=== PATIENT | female | born 1960 | race African-American/Black ===

== ENCOUNTER 2021-08-12 09:34 | Outpatient (CLI) | payer BC ==
[~2021-08-12 09:34] MED LIST: Magnevist 469MG/ML 20 ML VIAL ONE
== END 2021-08-12 09:35 | disposition home or self-care (01) ==
LOC: CSHMRI 09:34
PROVIDERS: ATTEND Anesthesiology Pain Medicine
DX: M54.16 Radiculopathy, lumbar region (principal); Z98.890 Other specified postprocedural states; M47.816 Spondylosis without myelopathy or radiculopathy, lumbar region
CPT/HCPCS: 72158; A9579

== ENCOUNTER 2021-08-18 15:24 | Outpatient (CLI) | payer BC | END 2021-08-18 15:25 | disposition home or self-care (01) | LOC: CSHMRI 15:24 | PROVIDERS: ATTEND Neurological Surgery | DX: I82.403 Acute embolism and thrombosis of unspecified deep veins of lower extremity, bilateral (principal); M25.562 Pain in left knee; S83.282A Other tear of lateral meniscus, current injury, left knee, initial encounter | CPT/HCPCS: 93970 ==

== ENCOUNTER 2021-11-12 10:12 | Outpatient (CLI) | payer BC | END 2021-11-12 10:13 | disposition home or self-care (01) | LOC: CSHRAD 10:12 | PROVIDERS: ATTEND Orthopaedic Surgery | DX: M54.50 Low back pain, unspecified (principal); M47.816 Spondylosis without myelopathy or radiculopathy, lumbar region; Z98.890 Other specified postprocedural states | CPT/HCPCS: 72100; 72120 ==

== ENCOUNTER 2021-12-10 07:26 | Outpatient (CLI) | payer BC | END 2021-12-10 07:27 | disposition home or self-care (01) | LOC: CSHULT 07:26 | PROVIDERS: ATTEND Internal Medicine Gastroenterology | DX: K21.9 Gastro-esophageal reflux disease without esophagitis (principal); K30 Functional dyspepsia; R10.13 Epigastric pain | CPT/HCPCS: 76700 ==

== ENCOUNTER 2023-01-19 10:33 | Outpatient (CLI) | payer BC ==
[2023-01-19] MEDS ORDERED: Iopamidol 300 61% 100 ML VIAL FS ONE (13:14)
== END 2023-01-19 10:34 | disposition home or self-care (01) ==
LOC: CSHCT 10:33
PROVIDERS: ATTEND Psychiatry & Neurology Neurology
DX: M48.061 Spinal stenosis, lumbar region without neurogenic claudication (principal); M51.36 Other intervertebral disc degeneration, lumbar region
CPT/HCPCS: 72132; Q9967

== ENCOUNTER 2023-04-19 12:28 | Observation (INO) | payer BC, OTHER, SELFPAY ==
[~2023-04-19 12:28] MED LIST changes: +Iopamidol 370 76% 100 ML VIAL ONE; -Magnevist 469MG/ML 20 ML VIAL ONE
[2023-04-19 13:24] LABS: ALT (SGPT) 12 U/L (8-55); AST (SGOT) 10 U/L (5-34); Albumin 4.1 g/dL (3.5-5.0); Alkaline Phosphatase 136 U/L (40-110); Anion Gap 15 mmol/L (10-20); BUN (Urea Nitrogen) 10 mg/dL (9.8-20.1); Bilirubin, Total 0.8 mg/dL (0.2-1.2); Calc. Creatinine Clearance 0 mL/min (70-130); Calcium 9.2 mg/dL (7.8-10.44); Carbon Dioxide 25 mmol/L (22-29); Chloride 106 mmol/L (98-107); Estimated GFR 81; Glucose 78 mg/dL (70-105); Lipase 15 U/L (8-78); Protein, Total 7.1 g/dL (6.0-8.3); Sodium 142 mmol/L (136-145)
[2023-04-19 13:25] LABS: Troponin I Less than 0.010 ng/mL (< 0.028)
[2023-04-19 13:29] LABS: #Eosinphils 0.1 10x3/uL (0.0-0.5); #Monocytes 0.6 10x3/uL (0.0-1.1); %Basophils 0.4 % (0.0-2.0); %Eosinophils 1.1 % (0.0-6.0); %Lymphocytes 32.5 % (18.0-47.0); %Monocytes 6.5 % (0.0-10.0); %Neutrophils 59.1 % (40.0-75.0); Hematocrit 36.8 % (34.9-44.5); Hemoglobin 12.5 g/dL (12.0-15.5); Mean Corpuscular Hemoglobin 25.2 pg (27.0-33.0); Mean Corpuscular Volume 74.2 fl (81.6-98.3); Mean Platelet Volume 11.5 fl (7.4-10.4); Platelet Count 276 10x3/uL (150-450); Red Blood Cell (RBC) Count 4.96 10x6/uL (3.90-5.03); White Blood Cell (WBC) Count 8.5 10x3/uL (3.5-10.5)
[2023-04-19] MEDS ORDERED: Morphine 4 MG/ML VIAL ONE (13:32)
[2023-04-19] MEDS ORDERED: Ondansetron PF 4 MG/2 ML Vial ONE (13:33)
[2023-04-19] MEDS ORDERED: HYDROmorphone 0.5 MG/0.5 ML SYRINGE ONE (13:55)
[2023-04-19 15:49] LABS: Troponin I Less than 0.010 ng/mL (< 0.028)
[2023-04-19] MEDS ORDERED: Ondansetron ODT 4 MG TAB PO PRN (17:59)
[2023-04-19 18:43] LABS: Troponin I Less than 0.010 ng/mL (< 0.028)
[2023-04-19] MEDS ORDERED: Metoprolol Tartrate 25 MG TAB PO SCH (21:30)
[2023-04-19 21:59] LABS: Troponin I Less than 0.010 ng/mL (< 0.028)
[2023-04-19] MEDS ORDERED: Metoprolol Tartrate 25 MG TAB ONE (21:59)
[2023-04-19] MEDS ORDERED: Morphine 2 MG/ML VIAL ONE (23:09)
[2023-04-19] MEDS ORDERED: Acetaminophen 325 MG TAB ONE (23:16)
[2023-04-19] MEDS: Acetaminophen 325 MG TAB PO PRN (23:19)
[2023-04-20 04:43] LABS: #Eosinphils 0.1 10x3/uL (0.0-0.5); #Monocytes 0.6 10x3/uL (0.0-1.1); %Basophils 0.4 % (0.0-2.0); %Eosinophils 1.6 % (0.0-6.0); %Lymphocytes 31.2 % (18.0-47.0); %Monocytes 6.8 % (0.0-10.0); %Neutrophils 59.6 % (40.0-75.0); Hematocrit 35.2 % (34.9-44.5); Hemoglobin 11.8 g/dL (12.0-15.5); Mean Corpuscular HGB CONC 33.5 g/dL (32.0-36.0); Mean Corpuscular Hemoglobin 24.7 pg (27.0-33.0); Mean Corpuscular Volume 73.8 fl (81.6-98.3); Mean Platelet Volume 11.5 fl (7.4-10.4); Platelet Count 272 10x3/uL (150-450); RBC Distribution Width 14.2 % (11.5-14.5); Red Blood Cell (RBC) Count 4.77 10x6/uL (3.90-5.03); White Blood Cell (WBC) Count 8.3 10x3/uL (3.5-10.5)
[2023-04-20 04:55] LABS: Anion Gap 10 mmol/L (10-20); BUN (Urea Nitrogen) 11 mg/dL (9.8-20.1); Calc. Creatinine Clearance 0 mL/min (70-130); Carbon Dioxide 30 mmol/L (22-29); Cardiac Risk 2.8 (Less than 4.5); Chloride 104 mmol/L (98-107); Cholesterol 178 mg/dl (< 200 Desired); Estimated GFR 78; Glucose 94 mg/dL (70-105); HDL Cholesterol 63 mg/dL (>60 Neg Risk); LDL Cholesterol, Calculated 102 mg/dL; Potassium 4.4 mmol/L (3.5-5.1); Sodium 140 mmol/L (136-145); Triglycerides 65 mg/dL (Less than 150)
[2023-04-20] MEDS ORDERED: Acetaminophen 325 MG TAB ONE ×2 (06:25→15:48)
[2023-04-20] MEDS ORDERED: cloNIDine 0.1 MG TAB ONE (06:37)
[2023-04-20] MEDS: Acetaminophen 325 MG TAB PO PRN ×3 (06:39→22:21)
[2023-04-20] MEDS ORDERED: cloNIDine 0.1 MG TAB PO SCH (08:00)
[2023-04-20] MEDS ORDERED: Aspirin Chewable 81 MG TAB ONE (08:04)
[2023-04-20] MEDS ORDERED: Losartan 25 MG TAB ONE (08:05)
[2023-04-20] MEDS: Aspirin Chewable 81 MG TAB PO SCH (08:14)
[2023-04-20] MEDS ORDERED: Losartan 25 MG TAB PO SCH ×2 (09:00→21:00)
[2023-04-20 10:44] LABS: Magnesium 2.1 mg/dL (1.6-2.6)
[2023-04-20] MEDS ORDERED: Isosorbide Mononitrate 30 MG ER.TAB PO SCH (13:00)
[2023-04-20] MEDS ORDERED: Spironolactone 25 MG TAB PO SCH (21:00)
[2023-04-20 22:53] VITALS: BMI 45.6
[2023-04-21] MEDS: Aspirin Chewable 81 MG TAB PO SCH (08:46)
[2023-04-21] MEDS ORDERED: Losartan 50 MG TAB PO SCH (09:00)
[2023-04-21] MEDS ORDERED: Ibuprofen 200 MG TAB PO SCH (09:00)
[2023-04-21] MEDS ORDERED: Isosorbide Mononitrate 30 MG ER.TAB PO SCH (09:00)
[2023-04-21 12:29] VITALS: BP 129/66; TEMP 98.5
[2023-04-21] MEDS ORDERED: Morphine 4 MG/ML VIAL SLOW IVP SCH (13:45)
== END 2023-04-21 15:20 | disposition home or self-care (01) ==
LOC: CSHERS 12:28 → CSHERHOLD 15:11 → CSHTELE 04-20 21:19
PROVIDERS: ADMIT Internal Medicine; ATTEND Internal Medicine
PROC: B246ZZZ Ultrasonography of Right and Left Heart (ICD-10-PCS; principal; 2023-04-19)
DX: I25.118 Atherosclerotic heart disease of native coronary artery with other forms of angina pectoris (principal); E78.2 Mixed hyperlipidemia; I11.0 Hypertensive heart disease with heart failure; I50.32 Chronic diastolic (congestive) heart failure; G47.30 Sleep apnea, unspecified; K58.9 Irritable bowel syndrome, unspecified; R10.84 Generalized abdominal pain; M54.9 Dorsalgia, unspecified; G89.29 Other chronic pain; Z88.8 Allergy status to other drugs, medicaments and biological substances; Z79.899 Other long term (current) drug therapy; Z87.891 Personal history of nicotine dependence; Z79.82 Long term (current) use of aspirin
CPT/HCPCS: 36415; 71045; 71275; 80048; 80053; 80061; 83690; 83735; 83880; 84484; 85025; 93005; 93306; 96374; 96375; 96376; G0378; J1170; J2270; J2272; J2405; Q9967

== ENCOUNTER 2024-12-23 08:03 | Observation (INO) | payer OTHER ==
[2024-12-23] MEDS ORDERED: Aspirin 325 MG TAB ONE (08:35)
[2024-12-23] MEDS ORDERED: Aspirin Chewable 81 MG TAB ONE ×2 (08:38→08:39)
[2024-12-23 08:41] LABS: #Basophils Less than 0.03 10x3/uL (0.0-0.2); #Eosinophils 0.15 10x3/uL (0.0-0.5); #Monocytes 0.65 10x3/uL (0.0-1.1); #Neutrophils 6.23 10x3/uL (1.5-8.4); %Basophils 0.2 % (0.0-2.0); %Eosinophils 1.4 % (0.0-6.0); %Lymphocytes 32.8 % (18.0-47.0); %Monocytes 6.1 % (0.0-10.0); %Neutrophils 58.9 % (40.0-75.0); Hematocrit 35.8 % (34.9-44.5); Hemoglobin 11.9 g/dL (12.0-15.5); Mean Corpuscular Hemoglobin 24.1 pg (27.0-33.0); Mean Corpuscular Volume 72.6 fL (81.6-98.3); Platelet Count 327 10x3/uL (150-450); Red Blood Cell (RBC) Count 4.93 10x6/uL (3.90-5.03); White Blood Cell (WBC) Count 10.58 10x3/uL (3.5-10.5)
[2024-12-23 09:00] LABS: Troponin I Less than 0.010 ng/mL (< 0.028)
[2024-12-23 09:04] LABS: AST (SGOT) 9 U/L (11-34); Albumin 3.4 g/dL (3.1-4.5); Alkaline Phosphatase 131 U/L (40-110); Anion Gap 12 mmol/L (10-20); BUN (Urea Nitrogen) 13 mg/dL (9.8-20.1); Bilirubin, Total 0.3 mg/dL (0.3-1.2); Calc. Creatinine Clearance 0 mL/min (70-130); Calcium 8.7 mg/dL (7.8-10.44); Carbon Dioxide 25 mmol/L (23-31); Chloride 110 mmol/L (98-107); Globulin 3.0 g/dL (2.4-3.5); Glucose 99 mg/dL (80-115); Magnesium 2.0 mg/dL (1.6-2.6); Potassium 3.8 mmol/L (3.5-5.1); Sodium 143 mmol/L (136-145)
[2024-12-23] MEDS ORDERED: Iopamidol 370 76% 100 ML VIAL ONE (10:11)
[2024-12-23 10:44] LABS: ALT (SGPT) 12 U/L (Less than 34)
[2024-12-23 11:36] LABS: Troponin I 0.011 ng/mL (< 0.028)
[2024-12-23 14:38] VITALS: BMI 46.5
[2024-12-23] MEDS ORDERED: Bisacodyl 10 MG SUPP PR PRN (15:32)
[2024-12-23] MEDS ORDERED: Calcium Carbonate 500 MG ChewTAB PO PRN (15:32)
[2024-12-23] MEDS ORDERED: Senokot S 8.6-50 MG TAB PO PRN (15:32)
[2024-12-23] MEDS ORDERED: Ondansetron PF 4 MG/2 ML Vial IVP PRN (15:32)
[2024-12-23] MEDS ORDERED: Melatonin 3 MG TAB PO PRN (15:32)
[2024-12-23] MEDS ORDERED: Albuterol 2.5 MG (3 mL) NEB NEB PRN (15:39)
[2024-12-23] MEDS ORDERED: Ibuprofen 200 MG TAB PO PRN (16:16)
[2024-12-23] MEDS: Acetaminophen 325 MG TAB PO PRN (16:40)
[2024-12-23 19:14] LABS: Influenza A by NAA Not Detected (NotDetected); Influenza B by NAA Not Detected (NotDetected); SARS-CoV-2 NAA Rapid Test Not Detected (NotDetected)
[2024-12-23] MEDS: Famotidine 20 MG TAB PO SCH ×2 (20:40→22:53)
[2024-12-23] MEDS ORDERED: Dicyclomine 10 MG CAP PO PRN (20:58)
[2024-12-24 05:33] LABS: #Basophils 0.03 10x3/uL (0.0-0.2); #Eosinophils 0.14 10x3/uL (0.0-0.5); #Monocytes 0.74 10x3/uL (0.0-1.1); #Neutrophils 6.82 10x3/uL (1.5-8.4); %Basophils 0.3 % (0.0-2.0); %Eosinophils 1.3 % (0.0-6.0); %Lymphocytes 28.2 % (18.0-47.0); %Monocytes 6.8 % (0.0-10.0); %Neutrophils 62.8 % (40.0-75.0); Hematocrit 32.9 % (34.9-44.5); Hemoglobin 11.0 g/dL (12.0-15.5); Mean Corpuscular Hemoglobin 24.3 pg (27.0-33.0); Mean Corpuscular Volume 72.6 fL (81.6-98.3); Platelet Count 302 10x3/uL (150-450); Red Blood Cell (RBC) Count 4.53 10x6/uL (3.90-5.03); White Blood Cell (WBC) Count 10.86 10x3/uL (3.5-10.5)
[2024-12-24 05:44] LABS: Anion Gap 9 mmol/L (10-20); BUN (Urea Nitrogen) 12 mg/dL (9.8-20.1); Calc. Creatinine Clearance 117 mL/min (70-130); Calcium 8.5 mg/dL (7.8-10.44); Carbon Dioxide 25 mmol/L (23-31); Cardiac Risk 2.9 (Less than 4.5); Chloride 109 mmol/L (98-107); Cholesterol 141 mg/dl (< 200 Desired); Glucose 114 mg/dL (80-115); HDL Cholesterol 49 mg/dL (>60 Neg Risk); LDL Cholesterol, Calculated 76 mg/dL; Potassium 4.2 mmol/L (3.5-5.1); Sodium 139 mmol/L (136-145); Triglycerides 80 mg/dL (Less than 150)
[2024-12-24 06:01] LABS: Thyroid Stimulating Hormone 1.3992 uIU/mL (0.35-4.94)
[2024-12-24] MEDS ORDERED: Non-Formulary Medication 1 EACH (Linaclotide [Linzess] 145 MCG Capsule) PO SCH (07:30)
[2024-12-24] MEDS: Pantoprazole 40 MG DR.TAB PO SCH (08:41)
[2024-12-24] MEDS: Aspirin 81 mg Enteric Coated Tablet PO SCH (08:41)
[2024-12-24] MEDS: Spironolactone 25 MG TAB PO SCH (12:14)
[2024-12-24 14:33] LABS: Vitamin B12 434.0 pg/mL (211-911)
[2024-12-24] MEDS ORDERED: Non-Formulary Medication 1 EACH (Lubiprostone [Amitiza] 24 MCG Cap) PO SCH (17:00)
[2024-12-24 17:13] VITALS: BP 121/75; TEMP 98.6
[2024-12-24] MEDS: Sucralfate 1 GM TAB PO SCH (18:56)
[2024-12-24] MEDS ORDERED: Famotidine 20 MG TAB PO SCH (21:00)
[2024-12-25] MEDS ORDERED: Spironolactone 25 MG TAB PO SCH (08:00)
[2024-12-25] MEDS ORDERED: Losartan 50 MG TAB PO SCH (09:00)
[2024-12-25] MEDS ORDERED: Topiramate 100 MG TAB PO SCH (09:00)
[2024-12-25] MEDS ORDERED: Pantoprazole 40 MG DR.TAB PO SCH (09:00)
== END 2024-12-24 19:33 | disposition home or self-care (01) ==
LOC: CSHERS 08:03 → CSHTELE 13:05
PROVIDERS: ADMIT Family Medicine; ATTEND Family Medicine
PROC: B24BZZZ Ultrasonography of Heart with Aorta (ICD-10-PCS; principal; 2024-12-24)
DX: I25.118 Atherosclerotic heart disease of native coronary artery with other forms of angina pectoris (principal); R47.81 Slurred speech; R73.03 Prediabetes; I11.0 Hypertensive heart disease with heart failure; I50.32 Chronic diastolic (congestive) heart failure; E78.2 Mixed hyperlipidemia; E66.9 Obesity, unspecified; E55.9 Vitamin D deficiency, unspecified; K21.9 Gastro-esophageal reflux disease without esophagitis; G43.909 Migraine, unspecified, not intractable, without status migrainosus; M48.00 Spinal stenosis, site unspecified; Z68.42 Body mass index [BMI] 45.0-49.9, adult; Z87.891 Personal history of nicotine dependence; Z87.59 Personal history of other complications of pregnancy, childbirth and the puerperium; Z90.49 Acquired absence of other specified parts of digestive tract; Z90.89 Acquired absence of other organs; Z90.710 Acquired absence of both cervix and uterus; Z88.8 Allergy status to other drugs, medicaments and biological substances; Z79.899 Other long term (current) drug therapy
CPT/HCPCS: 36415; 70450; 70496; 70498; 70551; 71045; 71250; 80048; 80053; 80061; 82607; 83036; 83735; 83880; 84443; 84484; 85025; 85379; 87636; 93005; 93306; 94760; G0378